=== PATIENT | female | born 1955 | race Caucasian/White ===

== ENCOUNTER 2019-01-05 09:18 | Outpatient (CLI) | payer MEDICAID ==
[~2019-01-05 09:18] MED LIST: naprosyn
== END 2019-01-05 20:26 | disposition home or self-care (01) ==
LOC: MRD 09:18
DX: R51 Headache (principal); W19.XXXA Unspecified fall, initial encounter; Y93.89 Activity, other specified; Y92.89 Other specified places as the place of occurrence of the external cause; Y99.8 Other external cause status
CPT/HCPCS: 70450